=== PATIENT | male | born 1995 | race African-American/Black ===

== ENCOUNTER 2016-12-24 21:48 | Emergency (ER) | payer OTHER ==
[~2016-12-24] VITALS: Ht 185.4 cm; Wt 81.3 kg
[2016-12-24 23:53] VITALS: BP 141/89
== END 2016-12-24 23:53 | disposition home or self-care (01) ==
LOC: EME 21:48
DX: S43.004A Unspecified dislocation of right shoulder joint, initial encounter (principal); W51.XXXA Accidental striking against or bumped into by another person, initial encounter; Y93.67 Activity, basketball
CPT/HCPCS: 73020; 99281; 99284